=== PATIENT | female | born 1995 | race Asian ===

== ENCOUNTER 2018-07-06 19:10 | Emergency (ER) | payer OTHER ==
[2018-07-06 19:16] VITALS: BP 126/69
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
== END 2018-07-06 19:50 | disposition home or self-care (01) ==
DX: S16.1XXA Strain of muscle, fascia and tendon at neck level, initial encounter (principal); V49.3XXA Car occupant (driver) (passenger) injured in unspecified nontraffic accident, initial encounter; Y99.9 Unspecified external cause status

== ENCOUNTER → 2018-11-08 | Outpatient (CLI) | payer OTHER | LOC: FIMAGING 16:53 | PROVIDERS: ATTEND Registered Nurse | DX: E22.9 Hyperfunction of pituitary gland, unspecified (principal) ==